=== PATIENT | female | born 1990 | race Caucasian/White ===

== ENCOUNTER 2018-06-09 18:54 | Inpatient (IN) | payer BC ==
[2018-06-09] MEDS ORDERED: Misoprostol TAB* 100 MCG VAGINAL ONE (19:59)
--- NOTE | 2018-06-09 20:05 | HP ---
General Information - Reason for Visit induction of labor - General Information Maternal Age: 24 Grav: 2 Para: 1 SAB: 0 IEA: 0 Estimated Due Date: 01/08/15 Determined By: LMP Maternal Blood Type and Rh: A Negative - Results this Serology/RPR Result: Non-Reactive Rubella Result: Immune HBsAg Result: Negative HIV Result: Negative GBS Culture Result: Negative Past Medical History Delivery History: Hx Uncomplicated Vaginal Delivery Pertinent Past Medical History: See Records - hx GDM 2013, hx hyperthyroidism in Pertinent Past Surgical History: See Records - gallbladder 2014 Pertinent Family History: See Records - stroke - Antepartal Records Antepartal Records: Reviewed, Complicated by: - lowlying placenta( resolved 03/08/2018, anemia) Review of Systems Constitutional: Comfortable CV Complaint: No Respiratory: Shortness of Breath: No Gastrointestinal: No Nausea/Vomiting, Normal Bowel Movement Genitourinary: No Dysuria, No Bleeding, No Leaking Fluid Musculoskeletal: No Complaint, No Epigastric Pain Neurological: No Headache, No Visual Changes Movement: Normal Exam Allergies/Adverse Reactions: Allergies No Known Allergies Allergy (Verified 06/09/18 20:36) - Measurements Height: 5 ft 2 in Weight: 174 lb Body Mass Index (BMI): 31.8 Pre- Weight: 152 lb - Exam Breast: Breast Exam Deferred CVA: No CVA Tenderness Extremities: No Edema Heart: Normal Rhythm/Heart Sounds HEENT: No Significant Findings Lungs: Clear Bilaterally Rectal: Rectal Exam Deferred Reflexes: DTR 2+ Thyroid: No Thyromegaly - Abdominal Exam Abdomen Exam: Fundal Height Consistent with Dates Targeted Exam Findings Estimated Weight: 8lbs 4oz Cervical Exam: 2cm Effacement: 70% Station: -2 Presenting Part: Vertex Membrane Status: Intact EFM Findings - External Monitor Findings Baseline Heart Rate: 135 External Monitor Findings: Accelerations Present, No Pattern of Variable or Late Decelerations, Variability Moderate, Baseline Stable Contractions: Irregular, Mild, < 45 Seconds Contraction Frequency: 10-20min Assessment/Plan - Assessment 27 y.o. 40w3d EGA, induction of labor - Plan Plan: Induction, Cervical Ripening - Date/Time of Admission Date of Admission: 06/09/18 Time of Admission: 19:00
[2018-06-09] MEDS ORDERED: Promethazine INJ(RESTRICTED)* 25 MG/ML 1 ML VIAL IV ONE (21:28)
[2018-06-09] MEDS ORDERED: Nalbuphine* 10 MG/ML 1 ML VIAL IV ONE (21:28)
--- NOTE | 2018-06-09 21:34 | PN ---
Progress Note - Progress Note Date of Service: 06/09/18 Note: Vitals on admission: T:37.4C, BP:118/75, P:99
[2018-06-10 03:42] LABS: Hematocrit 29 % (35-47); Hemoglobin 8.8 g/dl (12.0-16.0); Mean Corpuscular HGB Conc 31 g/dl (31-36); Mean Corpuscular Hemoglobin 19 pg (27-31); Mean Corpuscular Volume 61 fL (80-97); Mean Platelet Volume 8.6 um3 (7.4-10.4); Platelet Count 220 10^3/ul (150-450); Red Blood Count 4.69 10^6/ul (4.00-5.40); Red Cell Distribution Width 19 % (10.5-15); White Blood Count 9.4 10^3/ul (3.5-10.8)
[2018-06-10] MEDS ORDERED: OBEPIDURAL* 250 ML EPIDURAL ONE (04:26)
--- NOTE | 2018-06-10 04:29 | PN ---
Progress Note - Progress Note Date of Service: 06/10/18 SOAP: Subjective: [Pt incresingly uncomfortable with ctx. Requests epidural. Pt denies VB, reports +FM and possible LOF] Objective: [BP: 121/72, P:98 FHT: 130 bpm, +accels, -decels, moderate variability cervix: 4/70/-3 by lasta nurse exam.] Assessment: [27 y.o. at 40 weeks and 4 days EGA, Active labor, cat I NST] Plan: [1) epidural 2) reevaluate PRN]
[2018-06-10] MEDS ORDERED: Famotidine TAB* 20 MG PO PRN (04:50)
[2018-06-10] MEDS ORDERED: Sodium Citrate/Citric Acid* 15 ML UDC PO PRN (04:50)
[2018-06-10] MEDS ORDERED: EPHEDrine (Pressors)* 50 MG/ML VIAL IV PUSH PRN (04:50)
[2018-06-10] MEDS ORDERED: Phenylephrine IV* 40 MCG/ML 10 ML SYRINGE IV PUSH PRN (04:50)
[2018-06-10] MEDS ORDERED: OBEPIDURAL* 250 ML EPIDURAL SCH (05:00)
[2018-06-10] MEDS ORDERED: Oxytocin in LR* 20 UNITS/1,000 ML BAG IVPB ONE (08:37)
[2018-06-10] MEDS ORDERED: Misoprostol TAB* 200 MCG ONE (09:22)
[2018-06-10] MEDS ORDERED: Glycerin ADULT SUPP PR PRN (09:33)
[2018-06-10] MEDS ORDERED: RHO D Immune Globulin (HUMAN)* 300 MCG = 1,500 I.U. INJ IM ONE (09:33)
[2018-06-10] MEDS ORDERED: Methylergonovine INJ* 0.2 MG/ML 1ML AMP IM ONE (09:33)
[2018-06-10] MEDS ORDERED: Acetaminophen TAB* 325 MG PO PRN (09:33)
[2018-06-10] MEDS ORDERED: Ibuprofen TAB* 600 MG PO PRN (09:33)
[2018-06-10] MEDS ORDERED: Misoprostol TAB* 200 MCG PR ONE (09:33)
[2018-06-10] MEDS ORDERED: Oxytocin in LR* 20 UNITS/1,000 ML BAG IVPB SCH (10:00)
[2018-06-10] MEDS: Dibucaine 1% 28.35 GM TUBE PR PRN (10:35)
[2018-06-10] MEDS: Witch Hazel PAD* JAR TOPICAL PRN (10:35)
[2018-06-10] MEDS: Ibuprofen ADULT LIQ* 600 MG/30 ML UDC PO PRN ×2 (11:00→17:45)
[2018-06-10] MEDS ORDERED: Simethicone TAB* 80 MG TAB.CHEW PO SCH (12:30)
--- NOTE | 2018-06-10 12:41 | PROCNOTE ---
[facility] OB: Delivery Note - Delivery A Date of : 06/10/18 Time of : 09:17 [place] Sex: Male Weight at : 8 lb 14 oz - lakia bartlett Score 1 Minute: 4 Score 5 Minutes: 9 Gestational Age in Weeks and Days at Delivery: 40 Weeks and 4 Days Delivery Method: Spontaneous Vaginal Labor: Induced Amniotic Fluid: Clear Estimated Blood Loss: 450 Anesthesia/Analgesia: CEI for Labor Delivered By: Jessica Nloen - Nursery Level of Nursery: Regular/Bedside - Perineum Perineal Injury: Perineal Laceration, 1st Degree Perineal Repair: By Delivering Practioner - Events Delivery Events of Note: Post- Bleeding - Meds Given Delivery Events of Note Comment: 600mcg cytotec RC by provider, 0.2mg methergine IM per provider - Risk for Falls Delivered OB Patient- Risk for Falls: Heavy Bleeding, Low Hematocrit (<29) Fall Risk: Patient is at High Risk for Falls - Additional Delivery Notes Additional Delivery Notes: nuchal cord x 1
[2018-06-10] MEDS: Docusate CAP* 100 MG PO SCH (16:47)
[2018-06-11 06:35] LABS: ABS Basophils 0.1 10^3/ul (0-0.2); ABS Eosinophils 0.1 10^3/ul (0-0.6); ABS Lymphocytes 2.6 10^3/ul (1.0-4.8); ABS Monocytes 0.9 10^3/ul (0-0.8); ABS Neutrophils 9.1 10^3/ul (1.5-7.7); ABS Nucleated RBC 0 10^3/ul; Eosinophil % 0.9 % (0-6); Hematocrit 24 % (35-47); Hemoglobin 7.2 g/dl (12.0-16.0); Lymphocyte % 20.6 % (25-47); Mean Corpuscular HGB Conc 31 g/dl (31-36); Mean Corpuscular Hemoglobin 19 pg (27-31); Mean Corpuscular Volume 61 fL (80-97); Mean Platelet Volume 8.2 um3 (7.4-10.4); Nucleated Red Blood Cells % 0.1; Platelet Count 202 10^3/ul (150-450); Red Blood Count 3.88 10^6/ul (4.00-5.40); Red Cell Distribution Width 19 % (10.5-15); White Blood Count 12.8 10^3/ul (3.5-10.8)
[2018-06-11] MEDS: Docusate CAP* 100 MG PO SCH (06:54)
[2018-06-11 07:54] VITALS: BP 111/68
[2018-06-11] MEDS ORDERED: Ferrous Gluconate TAB* 324 MG TAB PO SCH (09:00)
[2018-06-11] MEDS: Ibuprofen ADULT LIQ* 600 MG/30 ML UDC PO PRN (12:47)
[2018-06-11] MEDS: Dibucaine 1% 28.35 GM TUBE PR PRN (12:47)
[2018-06-11] MEDS: Witch Hazel PAD* JAR TOPICAL PRN (12:47)
== END 2018-06-11 13:52 | disposition home or self-care (01) | DRG 560 ==
LOC: MCHOBOUT 18:54 → MCHOB 22:26
PROVIDERS: ADMIT Midwife; ATTEND Midwife
PROC: 10E0XZZ Delivery of Products of Conception, External Approach (ICD-10-PCS; principal; 2018-06-10)
PROC: 3E033VJ Introduction of Other Hormone into Peripheral Vein, Percutaneous Approach (ICD-10-PCS; 2018-06-10)
PROC: 10907ZC Drainage of Amniotic Fluid, Therapeutic from Products of Conception, Via Natural or Artificial Opening (ICD-10-PCS; 2018-06-10)
PROC: 0HQ9XZZ Repair Perineum Skin, External Approach (ICD-10-PCS; 2018-06-10)
DX: O48.0 Post-term pregnancy (principal); O72.1 Other immediate postpartum hemorrhage; O99.284 Endocrine, nutritional and metabolic diseases complicating childbirth; O69.81X0 Labor and delivery complicated by cord around neck, without compression, not applicable or unspecified; E05.90 Thyrotoxicosis, unspecified without thyrotoxic crisis or storm; O70.0 First degree perineal laceration during delivery; O90.81 Anemia of the puerperium; D64.9 Anemia, unspecified; Z3A.40 40 weeks gestation of pregnancy; Z37.0 Single live birth
CPT/HCPCS: 36415; 84112; 85025; 85027; 85461; 86850; 86900; 86901; A9270-GY; J2210; J2790; S0191